=== PATIENT | male | born 2000 | race Caucasian/White ===

== ENCOUNTER 2021-11-13 01:10 | Emergency (ER) | payer OTHER, SELFPAY ==
[~2021-11-13] VITALS: Ht 175.3 cm; Wt 65.9 kg
[~2021-11-13 01:10] MED LIST: ACET1TAB16 PO
[2021-11-13] MEDS ORDERED: NS 1,000 ML IV ONE (01:30)
[2021-11-13 01:38] LABS: BASO % 0.6 % (0.0-1.0); EOS # 0.1 10^3/uL (0.0-0.5); EOS % 2.8 % (0.0-3.0); HEMATOCRIT 44.2 % (42.0-52.0); HEMOGLOBIN 15.2 g/dl (13.5-17.5); LYMPH # 1.7 10^3/uL (1.5-5.0); LYMPH % 33.5 % (24.0-44.0); MEAN CORPUSCULAR HEMOGLOBIN 31.5 pg (27.0-33.0); MEAN CORPUSCULAR HGB CONC 34.4 g/dl (32.0-36.5); MEAN CORPUSCULAR VOLUME 91.5 fl (80.0-96.0); MONO # 0.5 10^3/uL (0.0-0.8); MONO % 10.5 % (2.0-8.0); NEUTROPHILS # 2.6 10^3/uL (1.5-8.5); NEUTROPHILS % 52.2 % (36.0-66.0); PLATELET COUNT, AUTOMATED 220 10^3/uL (150-450); RED BLOOD COUNT 4.83 10^6/uL (4.30-6.10)
[2021-11-13 02:06] LABS: AMPHETAMINES LEVEL URINE NEGATIVE (NEGATIVE); BARBITURATES URINE NEGATIVE (NEGATIVE); BENZODIAZEPINES URINE NEGATIVE (NEGATIVE); CANNABINOIDS URINE NEGATIVE (NEGATIVE); COCAINE METABOLITE URINE NEGATIVE (NEGATIVE); METHADONE URINE NEGATIVE (NEGATIVE); OPIATES URINE NEGATIVE (NEGATIVE); PHENCYCLIDINE URINE NEGATIVE (NEGATIVE)
[2021-11-13 02:15] LABS: ACETAMINOPHEN LEVEL < 2.0 UG/ML (10.0-30.0); ALBUMIN 3.8 GM/DL (3.2-5.2); ALT/SGPT 26 U/L (12-78); BILIRUBIN,DIRECT 0.1 MG/DL (0.0-0.2); BILIRUBIN,TOTAL 0.7 MG/DL (0.2-1.0); BLOOD UREA NITROGEN 13 MG/DL (7-18); CALCIUM LEVEL 9.5 MG/DL (8.5-10.1); CARBON DIOXIDE LEVEL 21 MEQ/L (21-32); CHLORIDE LEVEL 112 MEQ/L (98-107); CREATININE FOR GFR 0.92 MG/DL (0.70-1.30); GLOMERULAR FILTRATION RATE > 60.0 (>60); GLUCOSE, FASTING 86 MG/DL (70-100); POTASSIUM SERUM 3.8 MEQ/L (3.5-5.1); SALICYLATE LEVEL < 1.7 MG/DL (5.0-30.0); SODIUM LEVEL 145 MEQ/L (136-145); TOTAL PROTEIN 7.9 GM/DL (6.4-8.2)
[2021-11-13] MEDS ORDERED: ONDANSETRON 4MG/2ML VIAL IV ONE (02:20)
[2021-11-13] MEDS ORDERED: KETOROLAC 30 MG/ML 1ML VIAL IV ONE (02:20)
[2021-11-13 05:00] VITALS: BP 110/53
== END 2021-11-13 05:00 | disposition home or self-care (01) ==
LOC: M ED 01:10
DX: F10.929 Alcohol use, unspecified with intoxication, unspecified (principal); I45.19 Other right bundle-branch block; R94.31 Abnormal electrocardiogram [ECG] [EKG]; F17.200 Nicotine dependence, unspecified, uncomplicated; Z88.0 Allergy status to penicillin
CPT/HCPCS: 80048; 80076; 80143; 80307; 82077; 82550; 84443; 85025; 93005; 93041; 94760; 96361; 96374; 96375; 99285; J1885; J2405

== ENCOUNTER 2022-10-02 07:31 | Emergency (ER) | payer SELFPAY ==
[~2022-10-02] VITALS: Ht 170.2 cm; Wt 72.7 kg
[2022-10-02] MEDS ORDERED: diphenhydrAMINE 50MG/ML VIAL IV ONE (08:00)
[2022-10-02] MEDS ORDERED: FAMOTIDINE 20MG/2ML VIAL IVP ONE (08:00)
[2022-10-02] MEDS ORDERED: NS 1,000 ML IV ONE (08:00)
[2022-10-02 08:32] LABS: BASO % 0.7 % (0.0-1.0); EOS % 0.7 % (0.0-3.0); HEMATOCRIT 44.2 % (42.0-52.0); HEMOGLOBIN 15.6 g/dl (13.5-17.5); LYMPH # 2.3 10^3/uL (1.5-5.0); LYMPH % 42.9 % (24.0-44.0); MEAN CORPUSCULAR HEMOGLOBIN 30.1 pg (27.0-33.0); MEAN CORPUSCULAR HGB CONC 35.3 g/dl (32.0-36.5); MEAN CORPUSCULAR VOLUME 85.2 fl (80.0-96.0); MONO # 0.3 10^3/uL (0.0-0.8); MONO % 6.3 % (2.0-8.0); NEUTROPHILS # 2.6 10^3/uL (1.5-8.5); PLATELET COUNT, AUTOMATED 272 10^3/uL (150-450); RED BLOOD COUNT 5.19 10^6/uL (4.30-6.10); WHITE BLOOD COUNT 5.4 10^3/uL (4.0-10.0)
[2022-10-02 08:49] LABS: CANNABINOIDS URINE NEGATIVE (NEGATIVE); METHADONE URINE NEGATIVE (NEGATIVE); OPIATES URINE NEGATIVE (NEGATIVE); PHENCYCLIDINE URINE NEGATIVE (NEGATIVE)
[2022-10-02 08:50] LABS: AMPHETAMINES LEVEL URINE POSITIVE (NEGATIVE); BARBITURATES URINE NEGATIVE (NEGATIVE); BENZODIAZEPINES URINE NEGATIVE (NEGATIVE); COCAINE METABOLITE URINE NEGATIVE (NEGATIVE)
[2022-10-02 08:52] LABS: BLOOD UREA NITROGEN 10 MG/DL (9-23); C REACTIVE PROTEIN QUANTITATIV < 0.40 MG/DL (<1.0); CALCIUM LEVEL 9.8 MG/DL (8.5-10.1); CARBON DIOXIDE LEVEL 23 MMOL/L (20-31); CHLORIDE LEVEL 108 MMOL/L (98-107); CREATININE FOR GFR 0.83 MG/DL (0.70-1.30); GLOMERULAR FILTRATION RATE > 60.0 (>60); GLUCOSE, FASTING 86 MG/DL (60-100); POTASSIUM SERUM 3.9 MMOL/L (3.5-5.1); SODIUM LEVEL 144 MMOL/L (136-145)
[2022-10-02 08:54] LABS: COMPLEMENT C4 23.4 MG/DL (12-36)
[2022-10-02] MEDS ORDERED: PRED10TA2 PO (12:33)
[2022-10-02 12:47] VITALS: BP 122/82
== END 2022-10-02 12:55 | disposition home or self-care (01) ==
LOC: M ED 07:31
DX: K13.79 Other lesions of oral mucosa (principal); Z88.0 Allergy status to penicillin
CPT/HCPCS: 80048; 80307; 85025; 86140; 86160; 86161; 96374; 96375; 99284; J1100; J1200; S0028

== ENCOUNTER 2024-04-25 20:24 | Inpatient (IN) | payer SELFPAY ==
[~2024-04-25] VITALS: Ht 172.7 cm; Wt 65.0 kg
[~2024-04-25 20:24] MED LIST changes: +PRED10TA2 PO
[2024-04-25] MEDS ORDERED: HOME MED LIST COMPLETE! XX SCH (21:15)
[2024-04-26] MEDS ORDERED: MAALOX 30 ML SUSP *UDC PO PRN (00:15)
[2024-04-26] MEDS ORDERED: traZODone 50 MG TAB PO PRN (00:15)
[2024-04-26] MEDS ORDERED: IBUPROFEN 400MG TAB PO PRN (00:15)
[2024-04-26] MEDS ORDERED: diphenhydrAMINE 25MG CAP PO PRN (00:15)
[2024-04-26] MEDS ORDERED: MOM 30ML SUSPENSION UDC PO PRN (00:15)
[2024-04-26] MEDS ORDERED: ACETAMINOPHEN 325 MG TAB PO PRN (00:15)
[2024-04-26 01:45] VITALS: BP 121/75; TEMP 97.1; O2SAT 100
[2024-04-26 06:42] VITALS: BP 140/80; TEMP 96.8; O2SAT 100
[2024-04-26] MEDS ORDERED: HYDR-3363 PO ×2 (14:05→14:42)
== END 2024-04-26 14:46 | disposition home or self-care (01) | DRG 756 ==
LOC: M ED 20:24 → EDBD 20:24 → M ED INP 04-26 00:15 → M PSY 04-26 01:22
PROVIDERS: ADMIT Psychiatry & Neurology Psychiatry; ATTEND Psychiatry & Neurology Psychiatry
DX: F41.1 Generalized anxiety disorder (principal); F41.0 Panic disorder [episodic paroxysmal anxiety]; Z81.8 Family history of other mental and behavioral disorders